=== PATIENT | female | born 1990 | race Caucasian/White ===

== ENCOUNTER 2020-07-13 17:45 | Emergency (ER) | payer MEDICAID ==
[~2020-07-13] VITALS: Ht 170.2 cm; Wt 100.0 kg
[~2020-07-13 17:45] MED LIST: None per pt
[2020-07-13] MEDS ORDERED: IBUP-1223 PO (18:43)
[2020-07-13] MEDS ORDERED: ACET-1600 PO (18:43)
[2020-07-13] MEDS ORDERED: HYDR50TA99 PO (18:45)
[2020-07-13] MEDS ORDERED: ALBU90AE INH (18:45)
[2020-07-13] MEDS ORDERED: ARIP5TAB13 PO (18:46)
[2020-07-13] MEDS ORDERED: TRAZ50TA66 PO (18:46)
[2020-07-13] MEDS ORDERED: AMOX1TAB64 PO (18:47)
--- NOTE | 2020-07-13 18:58 | NUR ---
BEDSIDE REPORT FROM ARCELIA YUEN ASSUMING CARE OF PT AT THIS TIME.
--- NOTE | 2020-07-13 18:59 | NUR ---
PER DR MARTINEZ 60MG TORADOL IM THEN PREP FOR DC
[2020-07-13] MEDS ORDERED: KETOROLAC 60 MG/2 ML ONE (19:00)
[2020-07-13] MEDS ORDERED: KETOROLAC 30 MG/1 ML IM ONE (19:00)
--- NOTE | 2020-07-13 19:07 | NUR ---
PT MEDICATED PER NOV. PT NOW GETTING DRESSED AND READY TO GO HOME
[2020-07-13 19:54] VITALS: BP 134/86
== END 2020-07-13 20:09 | disposition home or self-care (01) ==
LOC: ED 18:54
DX: U07.1 COVID-19 (principal); B34.9 Viral infection, unspecified; R42 Dizziness and giddiness; R11.2 Nausea with vomiting, unspecified; R51.9 Headache, unspecified
CPT/HCPCS: 93005; 96372; 99283; J1885